=== PATIENT | male | born 1985 | race African-American/Black ===

== ENCOUNTER 2017-05-06 06:18 | Emergency (ER) | payer OTHER, SELFPAY ==
[2017-05-06] MEDS ORDERED: Ventolin HFA Inhaler 60 PUFF INHALER ONE (08:16)
[2017-05-06] MEDS ORDERED: Ibuprofen 800 MG TAB ONE (08:34)
[2017-05-06] MEDS ORDERED: HYDROcodone/Acetaminophen 5/325 mg Tablet ONE (08:34)
== END 2017-05-06 10:55 | disposition home or self-care (01) ==
LOC: MADERS 06:18
DX: S16.1XXA Strain of muscle, fascia and tendon at neck level, initial encounter (principal); J45.909 Unspecified asthma, uncomplicated; V54.6XXA Passenger in pick-up truck or van injured in collision with heavy transport vehicle or bus in traffic accident, initial encounter
CPT/HCPCS: 99284